=== PATIENT | female | born 1985 | race Caucasian/White ===

== ENCOUNTER 2019-08-25 17:21 | Emergency (ER) | payer MEDICAID ==
[~2019-08-25] VITALS: Ht 154.9 cm; Wt 89.1 kg
[~2019-08-25 17:21] MED LIST: ADVIL
[2019-08-25 17:32] VITALS: BP 127/93
[2019-08-25] MEDS ORDERED: LORAZEPAM 1MG TABLET PO ONE (18:30)
== END 2019-08-25 19:12 | disposition home or self-care (01) ==
LOC: ER 17:21
DX: F41.9 Anxiety disorder, unspecified (principal); B34.9 Viral infection, unspecified; Z90.710 Acquired absence of both cervix and uterus; Z98.890 Other specified postprocedural states; Z88.6 Allergy status to analgesic agent
CPT/HCPCS: 71045; 99283

== ENCOUNTER 2019-08-27 02:27 | Emergency (ER) | payer MEDICAID ==
[~2019-08-27] VITALS: Ht 154.9 cm; Wt 90.4 kg
[2019-08-27 03:05] VITALS: BP 137/71
== END 2019-08-27 04:15 | disposition home or self-care (01) ==
LOC: ER 02:27
DX: R09.81 Nasal congestion (principal); F41.9 Anxiety disorder, unspecified; R06.02 Shortness of breath; Z88.6 Allergy status to analgesic agent; Z98.51 Tubal ligation status; Z98.890 Other specified postprocedural states
CPT/HCPCS: 99281; 99283

== ENCOUNTER 2019-09-10 11:50 | Emergency (ER) | payer MEDICAID ==
[~2019-09-10] VITALS: Ht 154.9 cm; Wt 91.0 kg
[2019-09-10 12:03] VITALS: BP 134/78
== END 2019-09-10 13:44 | disposition home or self-care (01) ==
LOC: ER 11:50
DX: R00.2 Palpitations (principal); R03.0 Elevated blood-pressure reading, without diagnosis of hypertension
CPT/HCPCS: 93005; 99283

== ENCOUNTER 2024-04-25 16:50 | Emergency (ER) | payer MEDICAID ==
[~2024-04-25] VITALS: Ht 154.9 cm; Wt 79.8 kg
[2024-04-25 17:20] VITALS: O2SAT 100
[2024-04-25 17:22] VITALS: BP 126/77; PULSE 104; RESP 16; TEMP 97.9; O2SAT 99
[2024-04-25 17:52] LABS: CLARITY URINE CLOUDY (CLEAR); COLOR URINE YELLOW (YELLOW); GLUCOSE URINE NEGATIVE (NEGATIVE); KETONES URINE TRACE (NEGATIVE); LEUKOCYTE ESTERASE URINE 1+ (NEGATIVE); NITRITE URINE NEGATIVE (NEGATIVE); OCCULT BLOOD URINE 1+ (NEGATIVE); PH URINE 5.5 (4.5-8.0); PROTEIN URINE 1+ (NEGATIVE); SPECIFIC GRAVITY URINE 1.032 (1.005-1.030)
[2024-04-25 18:29] LABS: BACTERIA URINE 1+; URIC ACID CRYSTALS URINE 2+ /lpf
[2024-04-25] MEDS ORDERED: VAGICR TOP (20:06)
[2024-04-25] MEDS ORDERED: CEPH500C2 MT (20:06)
[2024-04-27 19:06] LABS: CHLAMYDIA TRACHOMATIS NAA Negative (Negative); NEISSERIA GONORRHOEAE NAA Negative (Negative)
== END 2024-04-25 20:11 | disposition home or self-care (01) ==
LOC: ER 16:50
DX: N39.0 Urinary tract infection, site not specified (principal); Z11.3 Encounter for screening for infections with a predominantly sexual mode of transmission; Z88.6 Allergy status to analgesic agent; Z98.890 Other specified postprocedural states
CPT/HCPCS: 81003; 81025; 87210; 87491; 87591; 99283